=== PATIENT | male | born 1960 ===

== ENCOUNTER 2019-05-07 22:00 | Inpatient (IN) | payer OTHER ==
[~2019-05-07] VITALS: Ht 182.9 cm; Wt 88.2 kg
[2019-05-07 22:50] LABS: BASOPHILS # (AUTO) 0.02 x10^3/uL (0-0.1); BASOPHILS % (AUTO) 0 % (0-1); EOSINOPHILS % (AUTO) 0 % (1-7); LYMPHOCYTES # (AUTO) 0.98 x10^3/uL (1-3.4); LYMPHOCYTES % (AUTO) 8 % (22-44); MD NO; MEAN CORPUSCULAR HEMOGLOBIN 30.4 pg (27.5-34.5); MEAN CORPUSCULAR HGB CONC 34.1 g/dL (33.2-36.2); MEAN CORPUSCULAR VOLUME 88.9 fL (81-97); MONOCYTES # (AUTO) 0.72 x10^3/uL (0.2-0.8); MONOCYTES % (AUTO) 6 % (2-9); NEUTROPHILS # (AUTO) 10.29 x10^3/uL (1.8-6.8); NEUTROPHILS % (AUTO) 86 % (42-75); PLATELET COUNT 288 x10^3/uL (130-400); RED BLOOD COUNT 4.59 x10^6/uL (4.38-5.82)
[2019-05-07 23:03] LABS: ALBUMIN 3.8 g/dL (3.4-5.0); ANION GAP 12 mmol/L (5-15); CALCIUM 8.8 mg/dL (8.5-10.1); CHLORIDE 108 mmol/L (98-107)
[2019-05-07 23:10] LABS: ALANINE AMINOTRANSFERASE 23 U/L (12-78); ALKALINE PHOSPHATASE 120 U/L (45-117); BILIRUBIN,TOTAL 1.5 mg/dL (0.2-1.0); CREATININE 2.05 mg/dL (0.7-1.3)
[2019-05-07 23:21] LABS: SALICYLATE LEVEL < 1.7 mg/dL (2.8-20.0)
--- NOTE | 2019-05-08 | NUR ---
MOTHER: EMILY [phone]
[2019-05-08 00:20] LABS: ACETONE, SERUM Trace (Negative)
[2019-05-08] MEDS ORDERED: SODIUM CHLORIDE FLUSH 10ML SYR IVF PRN (00:30)
[2019-05-08 00:40] LABS: MICROSCOPIC AUTO
[2019-05-08 00:41] LABS: CULTURE INDICATED? NO
[2019-05-08 00:54] LABS: AMPHETAMINE SCREEN, URINE Negative (Negative); BARBITURATE SCREEN, URINE Negative (Negative); BENZODIAZEPINE SCREEN, URINE Negative (Negative); CANNABINOID SCREEN, URINE Negative (Negative); COCAINE SCREEN, URINE Negative (Negative); METHADONE SCREEN, URINE Negative (Negative); OPIATE SCREEN, URINE Negative (Negative)
[2019-05-08 01:00] LABS: CHLORIDE,URINE RANDOM 75 mmol/L; POTASSIUM,URINE RANDOM 94 mmol/L; SODIUM,URINE RANDOM 45 mmol/L
[2019-05-08] MEDS ORDERED: POLYETHYLENE GLYCOL 17 GM PACKET PO PRN (01:00)
[2019-05-08] MEDS ORDERED: hydrALAzine 20 MG/ML, 1ML IVPush PRN (01:00)
[2019-05-08] MEDS ORDERED: PROMETHAZINE 25 MG/ML, 1ML IM PRN (01:00)
[2019-05-08] MEDS ORDERED: BISACODYL 10 MG SUPP PR PRN (01:00)
[2019-05-08] MEDS ORDERED: ACETAMINOPHEN 325 MG TABLET PO PRN (01:00)
[2019-05-08] MEDS ORDERED: DOCUSATE 100 MG CAPSULE PO PRN (01:00)
[2019-05-08] MEDS ORDERED: LABETALOL 5MG/ML, 20ML IVPush PRN (01:00)
[2019-05-08] MEDS ORDERED: DEXTROSE 50%, 50ML SYRINGE IVPush PRN (01:00)
[2019-05-08] MEDS ORDERED: GLUCAGON 1 MG IM PRN (01:00)
[2019-05-08] MEDS ORDERED: DEXTROSE 4 GM TAB.CHEW PO PRN (01:00)
[2019-05-08] MEDS ORDERED: ONDANSETRON 2MG/ML, 2ML IVPush PRN (01:00)
[2019-05-08] MEDS ORDERED: PLEASE ENTER ALLERGIES MC SCH (02:00)
[2019-05-08 02:15] VITALS: BP 161/89
[2019-05-08 02:30] VITALS: BP 161/89
[2019-05-08] MEDS: SODIUM CHLORIDE 0.9% 1,000 ML IV SCH ×3 (03:41→21:20)
[2019-05-08 06:09] LABS: BASOPHILS # (AUTO) 0.06 x10^3/uL (0-0.1); BASOPHILS % (AUTO) 1 % (0-1); EOSINOPHILS # (AUTO) 0.14 x10^3/uL (0-0.4); EOSINOPHILS % (AUTO) 2 % (1-7); LYMPHOCYTES # (AUTO) 1.41 x10^3/uL (1-3.4); LYMPHOCYTES % (AUTO) 17 % (22-44); MD NO; MEAN CORPUSCULAR HGB CONC 33.4 g/dL (33.2-36.2); MEAN CORPUSCULAR VOLUME 89.9 fL (81-97); MONOCYTES % (AUTO) 9 % (2-9); NEUTROPHILS # (AUTO) 5.92 x10^3/uL (1.8-6.8); NEUTROPHILS % (AUTO) 72 % (42-75); PLATELET COUNT 264 x10^3/uL (130-400); RED BLOOD COUNT 4.22 x10^6/uL (4.38-5.82)
[2019-05-08] MEDS: HEPARIN 5,000 UNITS/ML, 1ML SQ SCH ×3 (06:25→23:06)
[2019-05-08 07:00] LABS: ALANINE AMINOTRANSFERASE 22 U/L (12-78); ALBUMIN 3.3 g/dL (3.4-5.0); ANION GAP 6 mmol/L (5-15); CALCIUM 8.5 mg/dL (8.5-10.1); CHLORIDE 112 mmol/L (98-107)
[2019-05-08 07:10] LABS: ALKALINE PHOSPHATASE 106 U/L (45-117); BILIRUBIN,TOTAL 1.1 mg/dL (0.2-1.0); TOTAL PROTEIN 7.2 g/dL (6.4-8.2)
[2019-05-08 07:54] VITALS: BP 156/99
[2019-05-08] MEDS: INSULIN LISPRO 100 UNITS/ML, PEN SQ-INSULIN SCH ×4 (08:36→21:23)
[2019-05-08] MEDS: SODIUM CHLORIDE FLUSH 10ML SYR IVF SCH ×2 (09:00→21:00)
[2019-05-08 12:58] VITALS: BP 168/91
[2019-05-08 15:37] VITALS: BP 159/97
[2019-05-08] MEDS ORDERED: AMLODIPINE 10 MG TAB ONE (17:34)
[2019-05-08] MEDS: AMLODIPINE 10 MG TAB PO SCH (17:43)
[2019-05-08 23:08] VITALS: BP 153/91
[2019-05-09 01:41] VITALS: BP 152/88
[2019-05-09] MEDS: SODIUM CHLORIDE 0.9% 1,000 ML IV SCH (05:19)
[2019-05-09 05:39] LABS: ANION GAP 7 mmol/L (5-15); CHLORIDE 111 mmol/L (98-107)
[2019-05-09 05:40] LABS: BASOPHILS # (AUTO) 0.03 x10^3/uL (0-0.1); BASOPHILS % (AUTO) 1 % (0-1); EOSINOPHILS # (AUTO) 0.27 x10^3/uL (0-0.4); EOSINOPHILS % (AUTO) 4 % (1-7); LYMPHOCYTES # (AUTO) 1.57 x10^3/uL (1-3.4); LYMPHOCYTES % (AUTO) 25 % (22-44); MD NO; MEAN CORPUSCULAR HEMOGLOBIN 30.3 pg (27.5-34.5); MEAN CORPUSCULAR HGB CONC 33.8 g/dL (33.2-36.2); MEAN CORPUSCULAR VOLUME 89.8 fL (81-97); MONOCYTES # (AUTO) 0.49 x10^3/uL (0.2-0.8); MONOCYTES % (AUTO) 8 % (2-9); NEUTROPHILS # (AUTO) 3.95 x10^3/uL (1.8-6.8); NEUTROPHILS % (AUTO) 63 % (42-75); PLATELET COUNT 236 x10^3/uL (130-400); RED BLOOD COUNT 4.12 x10^6/uL (4.38-5.82); RED CELL DISTRIBUTION WIDTH 13.2 % (9.4-14.8)
[2019-05-09 05:43] LABS: CREATININE 1.01 mg/dL (0.7-1.3); TRIGLYCERIDES 163 mg/dL (50-200)
[2019-05-09 05:44] LABS: CHOL/HDL RATIO 3.8; CHOLESTEROL, TOTAL 113 mg/dL (140-239); HDL CHOL % 27 % (26-37); HDL CHOLESTEROL (DIRECT) 30 mg/dL (40-60); LDL CHOLESTEROL,CALCULATED 50 mg/dL (54-169); LDL/HDL RATIO 1.7 (0.5-3.0); VLDL CHOLESTEROL 33 mg/dL (0-25)
[2019-05-09] MEDS: INSULIN LISPRO 100 UNITS/ML, PEN SQ-INSULIN SCH ×2 (07:00→10:54)
[2019-05-09 08:00] VITALS: BP 153/97
[2019-05-09] MEDS: SODIUM CHLORIDE FLUSH 10ML SYR IVF SCH (09:00)
[2019-05-09] MEDS ORDERED: AMLODIPINE 10 MG TAB PO SCH (09:00)
--- NOTE | 2019-05-09 09:52 | NUR ---
DC home. No acute PT needs Addendum: 05/09/19 at 0953 by Zoran Alves PT Amended: Links added.
[2019-05-09] MEDS: AMLODIPINE 10 MG TAB PO SCH (10:39)
[2019-05-09] MEDS: HEPARIN 5,000 UNITS/ML, 1ML SQ SCH (10:39)
[2019-05-09] MEDS ORDERED: [UNRECOGNIZED DRUG - OTHER] (11:22)
[2019-05-09] MEDS ORDERED: METF500T PO (11:22)
[2019-05-09] MEDS ORDERED: AMLO10TA8 PO (11:22)
[2019-05-09] MEDS ORDERED: LISI-167 PO (11:22)
== END 2019-05-09 15:11 | disposition home or self-care (01) | DRG 637 ==
LOC: SUATTDRO 05-08 00:38 → ED 05-08 00:40 → EDIP 05-08 01:15 → 4NE 05-08 01:27 → 3N 05-08 23:35
PROVIDERS: ADMIT Internal Medicine; ATTEND Hospitalist
DX: E11.65 Type 2 diabetes mellitus with hyperglycemia (principal); N17.0 Acute kidney failure with tubular necrosis; R65.10 Systemic inflammatory response syndrome (SIRS) of non-infectious origin without acute organ dysfunction; W18.39XA Other fall on same level, initial encounter; I10 Essential (primary) hypertension; Z86.73 Personal history of transient ischemic attack (TIA), and cerebral infarction without residual deficits; Y93.89 Activity, other specified; Y92.098 Other place in other non-institutional residence as the place of occurrence of the external cause; Y99.8 Other external cause status; Z83.3 Family history of diabetes mellitus; Z79.899 Other long term (current) drug therapy
CPT/HCPCS: 36415; 70450; 71045; 76700; 80048; 80053; 80061; 80307; 81001; 82010; 82140; 82436; 82803; 82962; 83036; 83880; 84133; 84300; 84443; 85025; 93005; 93306; 99285; G0378; J1644; J1815; J7030